=== PATIENT | female | born 1945 | race Asian ===

== ENCOUNTER 2021-10-11 12:52 | Emergency (ER) | payer MEDICARE, OTHER ==
[~2021-10-11] VITALS: Ht 160 cm; Wt 70.9 kg
[~2021-10-11 12:52] MED LIST: ACET-784 PO; AMLO5TAB66 PO; ASPI-1522 PO; ATOR20TA86 PO; CHLO100T23 PO; DIME50TA PO; DIPH25CA85 PO; DOCU-378 PO; FERR325T22 PO; GLIP10TA9 PO; MECL-160 PO; PROMDM5L PO; VALS160T2 PO
[2021-10-11 13:33] LABS: BASOPHILS % (AUTO) 0.2 % (0.0-2.0); EOSINOPHILS % (AUTO) 0.2 % (1.0-6.0); HEMATOCRIT 29.6 % (36-46); HEMOGLOBIN 10.7 g/dL (12.0-16.0); LYMPHOCYTES % (AUTO) 6.8 % (22.0-44.0); MEAN CORPUSCULAR HEMOGLOBIN 32.2 pg (26.0-34.0); MEAN CORPUSCULAR VOLUME 89 fL (80-100); MONOCYTES # (AUTO) 4.4 K/uL (0.1-1.0); MONOCYTES % (AUTO) 15.3 % (2.0-9.0); NEUTROPHILS # (AUTO) 22.3 K/uL (1.8-7.7); NEUTROPHILS % (AUTO) 77.5 % (40.0-70.0); PLATELET COUNT (AUTO) 178 K/uL (150-450); RED BLOOD CELL COUNT(AUTO) 3.31 MIL/uL (4.00-5.20)
[2021-10-11 13:46] LABS: ALBUMIN 4.6 g/dL (3.4-5.0); BILIRUBIN,TOTAL 0.7 mg/dL (0.1-1.0); CREATININE 0.92 mg/dL (0.60-1.30); POTASSIUM 4.3 mmol/L (3.5-5.1); PROTHROMBIN TIME 11.1 SEC (9.4-11.6); TOTAL PROTEIN, SERUM 8.6 g/dL (6.4-8.2)
[2021-10-11] MEDS ORDERED: SODIUM CHLORIDE 3% 500 ML IV ONE (14:15)
[2021-10-11] MEDS ORDERED: DOCU-385 PO (14:23)
[2021-10-11] MEDS ORDERED: DILT-39 PO (14:23)
[2021-10-11] MEDS ORDERED: ATOR10TA84 PO (14:23)
[2021-10-11] MEDS ORDERED: OLME40TA18 PO (14:23)
[2021-10-11] MEDS ORDERED: DICL100G31 TP (14:23)
[2021-10-11] MEDS ORDERED: ERGO500054 PO (14:23)
[2021-10-11 14:29] LABS: APPEARANCE,URINE HAZY (CLEAR); BILIRUBIN,URINE NEGATIVE (NEGATIVE); GLUCOSE, URINE (UA) 150-200 mg/dL (NEGATIVE); KETONES,URINE NEGATIVE (NEGATIVE); LEUKOCYTE ESTERASE ,URINE LARGE (NEGATIVE); NITRATE,URINE NEGATIVE (NEGATIVE); OCCULT BLOOD,URINE MODERATE (NEGATIVE); PROTEIN,URINE 30-70 mg/dL (NEGATIVE); SPECIFIC GRAVITIY, URINE 1.004 (1.003-1.030); UROBILINOGEN,URINE <=1.0 mg/dL (<=1.0)
[2021-10-11] MEDS ORDERED: PIPERACILLIN SODIUM/TAZOBACTAM 4.5 GM in DEXTROSE 5%-WATER 100 ML IV ONE (14:30)
[2021-10-11 14:46] LABS: BACTERIA,URINE Many /HPF (None Seen); SQUAMOUS EPITHELIAL CELL,UR Few /LPF (None Seen); WBC,URINE 26-50 /HPF (0-5)
[2021-10-11 15:46] LABS: COVID AG,FIA SOURCE NASAL SWAB
[2021-10-11 16:07] LABS: INFLUENZA TYPE A NEGATIVE FOR TYPE A (NEGATIVE); INFLUENZA TYPE B NEGATIVE FOR TYPE B (NEGATIVE)
[2021-10-11 17:51] LABS: BILIRUBIN,TOTAL 0.7 mg/dL (0.1-1.0); CALCIUM, TOTAL 8.4 mg/dL (8.8-10.5); CREATININE 0.99 mg/dL (0.60-1.30); POTASSIUM 4.1 mmol/L (3.5-5.1); TOTAL PROTEIN, SERUM 7.7 g/dL (6.4-8.2)
[2021-10-11 21:38] LABS: ALBUMIN 4.2 g/dL (3.4-5.0); BILIRUBIN,TOTAL 0.7 mg/dL (0.1-1.0); CREATININE 0.99 mg/dL (0.60-1.30); POTASSIUM 4.4 mmol/L (3.5-5.1); TOTAL PROTEIN, SERUM 8.2 g/dL (6.4-8.2)
[2021-10-12 00:11] LABS: GLUCOSE,POINT OF CARE 183 MG/DL (70-110)
[2021-10-12 02:39] VITALS: BP 134/64
== END 2021-10-12 03:19 | disposition short-term general hospital (02) ==
LOC: EMS 12:52
DX: E87.1 Hypo-osmolality and hyponatremia (principal); N39.0 Urinary tract infection, site not specified; M19.90 Unspecified osteoarthritis, unspecified site; E11.9 Type 2 diabetes mellitus without complications; E78.00 Pure hypercholesterolemia, unspecified; I10 Essential (primary) hypertension; E78.5 Hyperlipidemia, unspecified; Z98.890 Other specified postprocedural states; Z20.822 Contact with and (suspected) exposure to COVID-19
CPT/HCPCS: 99291; 96361; 96365; 70450; 71045; 87426; 81001; 82962; 83605; 83880; 84484; 85025; 85610; 85730; 87040; 87804; 87086; 99292; 93005; 80053; 36415; J2543; J7060; J7030; 51701

== ENCOUNTER 2022-01-07 17:10 | Inpatient (IN) | payer MEDICARE, OTHER ==
[~2022-01-07] VITALS: Ht 152.4 cm; Wt 62.8 kg
[~2022-01-07 17:10] MED LIST changes: -AMLO5TAB66 PO; +ATOR10TA84 PO; -ATOR20TA86 PO; -CHLO100T23 PO; +CHLO100T36 PO; +DICL100G31 TP; +DILT-39 PO; -DIME50TA PO; -DOCU-378 PO; +DOCU-385 PO; +ERGO500054 PO; +OLME40TA18 PO; -PROMDM5L PO; -VALS160T2 PO
[2022-01-07 18:27] LABS: BASOPHILS % (AUTO) 0.5 % (0.0-2.0); EOSINOPHILS % (AUTO) 1.6 % (1.0-6.0); HEMATOCRIT 33.2 % (36-46); HEMOGLOBIN 10.9 g/dL (12.0-16.0); LYMPHOCYTES # (AUTO) 2.2 K/uL (1.0-4.8); LYMPHOCYTES % (AUTO) 10.3 % (22.0-44.0); MEAN CORPUSCULAR HEMOGLOBIN 31.1 pg (26.0-34.0); MEAN CORPUSCULAR HGB CONC 32.7 G/dL (31.0-37.0); MEAN CORPUSCULAR VOLUME 95 fL (80-100); MONOCYTES # (AUTO) 5.8 K/uL (0.1-1.0); MONOCYTES % (AUTO) 26.5 % (2.0-9.0); NEUTROPHILS # (AUTO) 13.3 K/uL (1.8-7.7); NEUTROPHILS % (AUTO) 61.1 % (40.0-70.0); PLATELET COUNT (AUTO) 146 K/uL (150-450); RED BLOOD CELL COUNT(AUTO) 3.49 MIL/uL (4.00-5.20); RED CELL DISTRIBUTION WIDTH 12.4 % (11.5-14.5)
[2022-01-07] MEDS ORDERED: SODIUM CHLORIDE 0.9% 1,000 ML IV ONE ×2 (18:30→19:00)
[2022-01-07] MEDS ORDERED: ACETAMINOPHEN 500 MG TABLET PO ONE (18:30)
[2022-01-07 18:38] LABS: ANION GAP 8 mmol/L (8-16); CARBON DIOXIDE 28 mmol/L (22-29); CHLORIDE 90 mmol/L (98-107); CREATININE 1.18 mg/dL (0.60-1.30); GLUCOSE,RANDOM 296 mg/dL (70-110); POTASSIUM 4.9 mmol/L (3.5-5.1); SODIUM SERUM 126 mmol/L (136-145); UREA NITROGEN, BLOOD 25 mg/dL (7-18)
[2022-01-07 18:42] LABS: GLOMERULAR FILTR. RATE CALC 44 mL/min (>60)
[2022-01-07 18:48] LABS: LACTIC ACID 2.3 mmol/L (0.4-2.0)
[2022-01-07 18:56] LABS: COVID AG,FIA SOURCE NASOPHARYNGEAL
[2022-01-07 19:03] LABS: ALANINE AMINOTRANSFERASE 107 U/L (12-78); ALBUMIN 3.8 g/dL (3.4-5.0); ALKALINE PHOSPHATASE 108 U/L (46-116); ASPARTATE AMINOTRANSFERASE 46 U/L (15-37); BILIRUBIN,TOTAL 0.2 mg/dL (0.1-1.0); CREATINE KINASE, TOTAL ONLY 115 U/L (26-192); TOTAL PROTEIN, SERUM 7.8 g/dL (6.4-8.2)
[2022-01-07 19:19] LABS: INFLUENZA TYPE A NEGATIVE FOR TYPE A (NEGATIVE); INFLUENZA TYPE B NEGATIVE FOR TYPE B (NEGATIVE)
[2022-01-07] MEDS ORDERED: CefTRIAXone 1 GM/DEXTROSE 50 ML IV ONE (19:30)
[2022-01-07] MEDS ORDERED: AZITHROMYCIN 500 MG/NS 250 ML IV ONE (19:30)
[2022-01-07] MEDS ORDERED: ONDANSETRON HCL 4 MG/2 ML VIAL IVP PRN ×2 (20:30)
[2022-01-07] MEDS ORDERED: ACETAMINOPHEN 325 MG TABLET PO PRN (20:30)
[2022-01-07 20:37] LABS: APPEARANCE,URINE CLEAR (CLEAR); BILIRUBIN,URINE NEGATIVE (NEGATIVE); GLUCOSE, URINE (UA) 150-200 mg/dL (NEGATIVE); KETONES,URINE NEGATIVE (NEGATIVE); LEUKOCYTE ESTERASE ,URINE NEGATIVE (NEGATIVE); NITRATE,URINE NEGATIVE (NEGATIVE); OCCULT BLOOD,URINE NEGATIVE (NEGATIVE); PH,URINE 7.5 (5.0-8.0); PROTEIN,URINE NEGATIVE (NEGATIVE); SPECIFIC GRAVITIY, URINE 1.005 (1.003-1.030); UROBILINOGEN,URINE <=1.0 mg/dL (<=1.0)
[2022-01-07] MEDS ORDERED: IOHEXOL 300 MG/ML 100 ML VIAL ONE (20:45)
[2022-01-07] MEDS ORDERED: SODIUM CHLORIDE 0.9% 100 ML ONE (20:45)
[2022-01-07 20:46] LABS: BACTERIA,URINE None Seen /HPF (None Seen); WBC,URINE 0-2 /HPF (0-5)
[2022-01-07 20:47] LABS: SQUAMOUS EPITHELIAL CELL,UR Few /LPF (None Seen)
[2022-01-07] MEDS: DOCUSATE SODIUM 100 MG CAPSULE PO SCH (21:11)
[2022-01-07] MEDS: ChlorproMAZINE HCL 100 MG TABLET PO SCH (21:22)
[2022-01-07 22:52] VITALS: BP 156/83
[2022-01-07] MEDS: DiphenhydrAMINE HCL 25 MG CAPSULE PO PRN (23:55)
[2022-01-07] MEDS: HEPARIN SODIUM,PORCINE 5,000 UNITS/ML VIAL SQ SCH (23:56)
[2022-01-08 04:55] VITALS: BP 157/86
[2022-01-08] MEDS: RINGERS SOLUTION,LACTATED 1,000 ML IV SCH (05:36)
[2022-01-08 07:18] VITALS: BP 159/88
[2022-01-08] MEDS ORDERED: FERROUS SULFATE 325 MG EC TABLET PO SCH (08:00)
[2022-01-08] MEDS: ASPIRIN 81 MG DR TABLET PO SCH (08:20)
[2022-01-08] MEDS: DOCUSATE SODIUM 100 MG CAPSULE PO SCH ×2 (08:20→22:22)
[2022-01-08] MEDS: DILTIAZEM HCL CD 120 MG ER CAPSULE PO SCH (08:20)
[2022-01-08] MEDS: FERROUS SULFATE 325 MG EC TABLET PO SCH ×2 (08:20→17:59)
[2022-01-08] MEDS: ATORVASTATIN CALCIUM 10 MG TABLET PO SCH (08:21)
[2022-01-08] MEDS: HEPARIN SODIUM,PORCINE 5,000 UNITS/ML VIAL SQ SCH ×3 (08:21→22:59)
[2022-01-08] MEDS ORDERED: ATORVASTATIN CALCIUM 10 MG TABLET PO SCH (09:00)
[2022-01-08] MEDS ORDERED: DILTIAZEM HCL CD 120 MG ER CAPSULE PO SCH (09:00)
[2022-01-08] MEDS ORDERED: DEXTROSE 50%-WATER 25 GM/50 ML SYRINGE IVP PRN (11:15)
[2022-01-08 11:24] VITALS: BP 155/70
[2022-01-08 11:30] LABS: BASOPHILS % (AUTO) 0.7 % (0.0-2.0); EOSINOPHILS % (AUTO) 2.5 % (1.0-6.0); HEMATOCRIT 34.1 % (36-46); HEMOGLOBIN 11.2 g/dL (12.0-16.0); LYMPHOCYTES # (AUTO) 2.6 K/uL (1.0-4.8); LYMPHOCYTES % (AUTO) 14.2 % (22.0-44.0); MEAN CORPUSCULAR HEMOGLOBIN 31.6 pg (26.0-34.0); MEAN CORPUSCULAR HGB CONC 32.8 G/dL (31.0-37.0); MEAN CORPUSCULAR VOLUME 96 fL (80-100); MONOCYTES # (AUTO) 3.7 K/uL (0.1-1.0); MONOCYTES % (AUTO) 20.2 % (2.0-9.0); NEUTROPHILS # (AUTO) 11.5 K/uL (1.8-7.7); NEUTROPHILS % (AUTO) 62.4 % (40.0-70.0); PLATELET COUNT (AUTO) 127 K/uL (150-450); RED BLOOD CELL COUNT(AUTO) 3.54 MIL/uL (4.00-5.20); RED CELL DISTRIBUTION WIDTH 12.4 % (11.5-14.5)
[2022-01-08] MEDS: INSULIN LISPRO 100 UNITS/ML SQ PRN ×3 (11:46→22:25)
[2022-01-08 11:47] LABS: ANION GAP 11 mmol/L (8-16); CALCIUM, TOTAL 9.2 mg/dL (8.8-10.5); CARBON DIOXIDE 22 mmol/L (22-29); CHLORIDE 94 mmol/L (98-107); CREATININE 0.78 mg/dL (0.60-1.30); GLUCOSE,RANDOM 207 mg/dL (70-110); POTASSIUM 5.1 mmol/L (3.5-5.1); SODIUM SERUM 127 mmol/L (136-145); UREA NITROGEN, BLOOD 16 mg/dL (7-18)
[2022-01-08 11:48] LABS: GLOMERULAR FILTR. RATE CALC > 60 mL/min (>60)
[2022-01-08 15:13] VITALS: BP 156/77
[2022-01-08] MEDS ORDERED: SODIUM CHLORIDE 0.9% 250 ML IV ONE (16:46)
[2022-01-08] MEDS: CefTRIAXone 1 GM/DEXTROSE 50 ML IV SCH (16:51)
[2022-01-08] MEDS: AZITHROMYCIN 500 MG/NS 250 ML IV SCH (17:55)
[2022-01-08 19:42] VITALS: BP 138/73
[2022-01-08 21:02] LABS: GLUCOMETER DEV NAME(LOC) 5N.1C; GLUCOSE,POINT OF CARE 199 MG/DL (70-110)
[2022-01-08 21:02] LABS: GLUCOMETER DEV NAME(LOC) 5N.1C; GLUCOSE,POINT OF CARE 126 MG/DL (70-110)
[2022-01-08 21:02] LABS: GLUCOMETER DEV NAME(LOC) 5N.3; GLUCOSE,POINT OF CARE 164 MG/DL (70-110)
[2022-01-08 21:02] LABS: GLUCOMETER DEV NAME(LOC) 5N.1C; GLUCOSE,POINT OF CARE 168 MG/DL (70-110)
[2022-01-08] MEDS: ChlorproMAZINE HCL 100 MG TABLET PO SCH (22:23)
[2022-01-08] MEDS: ACETAMINOPHEN 325 MG TABLET PO PRN (22:23)
[2022-01-08] MEDS: DiphenhydrAMINE HCL 25 MG CAPSULE PO PRN (22:23)
[2022-01-08 23:35] VITALS: BP 145/80
[2022-01-09] VITALS (7 sets, daily range): BP systolic 129–161; BP diastolic 70–94
[2022-01-09] MEDS: ZOLPIDEM TARTRATE 5 MG TABLET PO PRN ×2 (00:37→19:31)
[2022-01-09] MEDS: RINGERS SOLUTION,LACTATED 1,000 ML IV SCH ×2 (00:37→22:57)
[2022-01-09 06:12] LABS: GLUCOMETER DEV NAME(LOC) 5N.3; GLUCOSE,POINT OF CARE 103 MG/DL (70-110)
[2022-01-09 06:12] LABS: GLUCOMETER DEV NAME(LOC) 5S.1B; GLUCOSE,POINT OF CARE 271 MG/DL (70-110)
[2022-01-09] MEDS: ATORVASTATIN CALCIUM 10 MG TABLET PO SCH (09:05)
[2022-01-09] MEDS: ASPIRIN 81 MG DR TABLET PO SCH (09:05)
[2022-01-09] MEDS: FERROUS SULFATE 325 MG EC TABLET PO SCH ×2 (09:06→18:06)
[2022-01-09] MEDS: DOCUSATE SODIUM 100 MG CAPSULE PO SCH ×2 (09:06→19:32)
[2022-01-09] MEDS: HEPARIN SODIUM,PORCINE 5,000 UNITS/ML VIAL SQ SCH ×3 (09:06→22:58)
[2022-01-09] MEDS: DILTIAZEM HCL CD 120 MG ER CAPSULE PO SCH (09:10)
[2022-01-09] MEDS: ACETAMINOPHEN 325 MG TABLET PO PRN ×2 (10:55→19:33)
[2022-01-09] MEDS ORDERED: SODIUM CHLORIDE 0.9% 500 ML IV ONE (11:00)
[2022-01-09] MEDS: INSULIN LISPRO 100 UNITS/ML SQ PRN ×3 (11:40→19:33)
[2022-01-09] MEDS: CefTRIAXone 1 GM/DEXTROSE 50 ML IV SCH (16:51)
[2022-01-09 17:22] LABS: GLUCOMETER DEV NAME(LOC) 5N.1C; GLUCOSE,POINT OF CARE 218 MG/DL (70-110)
[2022-01-09 17:22] LABS: GLUCOMETER DEV NAME(LOC) 5N.1C; GLUCOSE,POINT OF CARE 238 MG/DL (70-110)
[2022-01-09] MEDS: AZITHROMYCIN 500 MG/NS 250 ML IV SCH (17:58)
[2022-01-09] MEDS: DiphenhydrAMINE HCL 25 MG CAPSULE PO PRN (19:31)
[2022-01-09] MEDS: ChlorproMAZINE HCL 100 MG TABLET PO SCH (19:32)
[2022-01-09 20:41] LABS: GLUCOMETER DEV NAME(LOC) 5N.3; GLUCOSE,POINT OF CARE 206 MG/DL (70-110)
[2022-01-09 20:41] LABS: GLUCOMETER DEV NAME(LOC) 5N.1C; GLUCOSE,POINT OF CARE 250 MG/DL (70-110)
[2022-01-09] MEDS: GuaiFENesin/D-METHORPHAN [SUGAR-FREE] 200-20MG/10 ML SYRUP UDCUP PO PRN (21:13)
[2022-01-10 04:20] VITALS: BP 142/71
[2022-01-10 06:16] LABS: BASOPHILS % (AUTO) 0.5 % (0.0-2.0); EOSINOPHILS % (AUTO) 2.7 % (1.0-6.0); HEMATOCRIT 32.9 % (36-46); HEMOGLOBIN 10.9 g/dL (12.0-16.0); LYMPHOCYTES # (AUTO) 2.2 K/uL (1.0-4.8); LYMPHOCYTES % (AUTO) 13.3 % (22.0-44.0); MEAN CORPUSCULAR VOLUME 94 fL (80-100); MONOCYTES # (AUTO) 3.8 K/uL (0.1-1.0); MONOCYTES % (AUTO) 23.2 % (2.0-9.0); NEUTROPHILS % (AUTO) 60.3 % (40.0-70.0); PLATELET COUNT (AUTO) 151 K/uL (150-450); RED CELL DISTRIBUTION WIDTH 12.4 % (11.5-14.5)
[2022-01-10] MEDS: ACETAMINOPHEN 325 MG TABLET PO PRN ×2 (06:43→13:38)
[2022-01-10 07:05] VITALS: BP 155/92
[2022-01-10] MEDS: DOCUSATE SODIUM 100 MG CAPSULE PO SCH ×2 (07:58→20:06)
[2022-01-10] MEDS: HEPARIN SODIUM,PORCINE 5,000 UNITS/ML VIAL SQ SCH ×2 (07:58→16:56)
[2022-01-10] MEDS: ASPIRIN 81 MG DR TABLET PO SCH (07:59)
[2022-01-10] MEDS: DILTIAZEM HCL CD 120 MG ER CAPSULE PO SCH (07:59)
[2022-01-10] MEDS ORDERED: SODIUM CHLORIDE 0.9% 250 ML IV ONE (08:00)
[2022-01-10] MEDS ORDERED: GuaiFENesin/CODEINE [SUGAR FREE] 200-20MG/10 ML SYRUP UDCUP PO PRN (08:00)
[2022-01-10] MEDS: ATORVASTATIN CALCIUM 10 MG TABLET PO SCH (08:00)
[2022-01-10] MEDS: FERROUS SULFATE 325 MG EC TABLET PO SCH ×2 (08:02→18:19)
[2022-01-10 08:37] LABS: ALANINE AMINOTRANSFERASE 145 U/L (12-78); ALBUMIN 3.6 g/dL (3.4-5.0); ALKALINE PHOSPHATASE 96 U/L (46-116); ANION GAP 6 mmol/L (8-16); ASPARTATE AMINOTRANSFERASE 47 U/L (15-37); BILIRUBIN,TOTAL 0.2 mg/dL (0.1-1.0); CALCIUM, TOTAL 9.3 mg/dL (8.8-10.5); CARBON DIOXIDE 28 mmol/L (22-29); CHLORIDE 98 mmol/L (98-107); CREATININE 0.84 mg/dL (0.60-1.30); GLUCOSE,RANDOM 162 mg/dL (70-110); SODIUM SERUM 132 mmol/L (136-145); TOTAL PROTEIN, SERUM 7.9 g/dL (6.4-8.2); UREA NITROGEN, BLOOD 15 mg/dL (7-18)
[2022-01-10 08:41] LABS: GLUCOMETER DEV NAME(LOC) 5N.1C; GLUCOSE,POINT OF CARE 127 MG/DL (70-110)
[2022-01-10 08:42] LABS: GLOMERULAR FILTR. RATE CALC > 60 mL/min (>60)
[2022-01-10 11:51] VITALS: BP 149/77
[2022-01-10] MEDS: INSULIN LISPRO 100 UNITS/ML SQ PRN ×3 (11:57→20:10)
[2022-01-10] MEDS: METOPROLOL SUCCINATE 25 MG ER TABLET PO SCH (13:37)
[2022-01-10 15:22] VITALS: BP 150/80
[2022-01-10 16:07] LABS: S PNEUMO SOURCE Urine; STREP PNEUMONIAE AG URINE Negative (Negative)
[2022-01-10] MEDS: CefTRIAXone 1 GM/DEXTROSE 50 ML IV SCH (16:56)
[2022-01-10 17:06] LABS: LEGIONELLA PNEUMO AG URINE Negative (Negative)
[2022-01-10] MEDS: AZITHROMYCIN 500 MG/NS 250 ML IV SCH (18:19)
[2022-01-10 19:47] VITALS: BP 141/78
[2022-01-10] MEDS: RINGERS SOLUTION,LACTATED 1,000 ML IV SCH (19:59)
[2022-01-10] MEDS: ChlorproMAZINE HCL 100 MG TABLET PO SCH (20:00)
[2022-01-10] MEDS: ZOLPIDEM TARTRATE 5 MG TABLET PO PRN (21:16)
[2022-01-10] MEDS: DiphenhydrAMINE HCL 25 MG CAPSULE PO PRN (21:16)
[2022-01-10] MEDS: GuaiFENesin/D-METHORPHAN [SUGAR-FREE] 200-20MG/10 ML SYRUP UDCUP PO PRN (21:16)
[2022-01-10 23:24] VITALS: BP 147/85
[2022-01-11 03:06] LABS: GLUCOMETER DEV NAME(LOC) 5N.3; GLUCOSE,POINT OF CARE 176 MG/DL (70-110)
[2022-01-11 04:18] VITALS: BP 123/61
[2022-01-11 06:19] LABS: BASOPHILS % (AUTO) 0.7 % (0.0-2.0); EOSINOPHILS % (AUTO) 2.5 % (1.0-6.0); HEMATOCRIT 34.4 % (36-46); HEMOGLOBIN 11.2 g/dL (12.0-16.0); LYMPHOCYTES # (AUTO) 2.3 K/uL (1.0-4.8); LYMPHOCYTES % (AUTO) 13.7 % (22.0-44.0); MEAN CORPUSCULAR HGB CONC 32.7 G/dL (31.0-37.0); MEAN CORPUSCULAR VOLUME 95 fL (80-100); MONOCYTES # (AUTO) 3.3 K/uL (0.1-1.0); MONOCYTES % (AUTO) 19.7 % (2.0-9.0); NEUTROPHILS # (AUTO) 10.5 K/uL (1.8-7.7); NEUTROPHILS % (AUTO) 63.4 % (40.0-70.0); PLATELET COUNT (AUTO) 164 K/uL (150-450); RED BLOOD CELL COUNT(AUTO) 3.63 MIL/uL (4.00-5.20); RED CELL DISTRIBUTION WIDTH 12.3 % (11.5-14.5)
[2022-01-11 06:51] LABS: GLUCOMETER DEV NAME(LOC) 5S.1B; GLUCOSE,POINT OF CARE 174 MG/DL (70-110)
[2022-01-11 06:51] LABS: GLUCOMETER DEV NAME(LOC) 5S.1B; GLUCOSE,POINT OF CARE 135 MG/DL (70-110)
[2022-01-11 06:51] LABS: GLUCOMETER DEV NAME(LOC) 5S.1B; GLUCOSE,POINT OF CARE 176 MG/DL (70-110)
[2022-01-11 07:00] LABS: ANION GAP 7 mmol/L (8-16); CALCIUM, TOTAL 9.6 mg/dL (8.8-10.5); CARBON DIOXIDE 28 mmol/L (22-29); CHLORIDE 98 mmol/L (98-107); CREATININE 0.86 mg/dL (0.60-1.30); GLUCOSE,RANDOM 157 mg/dL (70-110); SODIUM SERUM 133 mmol/L (136-145); UREA NITROGEN, BLOOD 17 mg/dL (7-18)
[2022-01-11 07:03] LABS: GLOMERULAR FILTR. RATE CALC > 60 mL/min (>60)
[2022-01-11 07:44] VITALS: BP 140/73
[2022-01-11] MEDS: FERROUS SULFATE 325 MG EC TABLET PO SCH (07:59)
[2022-01-11] MEDS: HEPARIN SODIUM,PORCINE 5,000 UNITS/ML VIAL SQ SCH ×2 (07:59)
[2022-01-11] MEDS: METOPROLOL SUCCINATE 25 MG ER TABLET PO SCH (07:59)
[2022-01-11] MEDS: DOCUSATE SODIUM 100 MG CAPSULE PO SCH (07:59)
[2022-01-11] MEDS: ASPIRIN 81 MG DR TABLET PO SCH (07:59)
[2022-01-11] MEDS: ATORVASTATIN CALCIUM 10 MG TABLET PO SCH (07:59)
[2022-01-11] MEDS ORDERED: DILTIAZEM HCL CD 180 MG ER CAPSULE PO SCH (09:00)
[2022-01-11] MEDS ORDERED: DILTIAZEM HCL CD 120 MG ER CAPSULE PO SCH ×2 (09:00)
[2022-01-11] MEDS ORDERED: DILT120C89 PO (10:40)
[2022-01-11] MEDS ORDERED: METO25XL PO (10:40)
[2022-01-11] MEDS ORDERED: AZIT-104 PO (10:40)
[2022-01-11] MEDS ORDERED: CEPH-558 PO (10:40)
[2022-01-11 11:15] VITALS: BP 142/68
[2022-01-11] MEDS: INSULIN LISPRO 100 UNITS/ML SQ PRN (14:29)
[2022-01-11 19:01] LABS: GLUCOMETER DEV NAME(LOC) 5S.1B; GLUCOSE,POINT OF CARE 230 MG/DL (70-110)
== END 2022-01-11 14:30 | disposition home or self-care (01) | DRG 871 ==
LOC: EMS 17:10 → 5S 21:12 → EMS 21:45
PROVIDERS: ADMIT Internal Medicine; ATTEND Internal Medicine
DX: A41.9 Sepsis, unspecified organism (principal); J18.9 Pneumonia, unspecified organism; E87.1 Hypo-osmolality and hyponatremia; N39.0 Urinary tract infection, site not specified; E11.65 Type 2 diabetes mellitus with hyperglycemia; I10 Essential (primary) hypertension; E78.00 Pure hypercholesterolemia, unspecified; Z20.822 Contact with and (suspected) exposure to COVID-19; I48.91 Unspecified atrial fibrillation; N28.1 Cyst of kidney, acquired; Z79.82 Long term (current) use of aspirin; Z82.49 Family history of ischemic heart disease and other diseases of the circulatory system; Z86.73 Personal history of transient ischemic attack (TIA), and cerebral infarction without residual deficits; Z79.84 Long term (current) use of oral hypoglycemic drugs; Z79.899 Other long term (current) drug therapy
CPT/HCPCS: 51702; 71045; 71260; 72193; 74160; 80048; 80053; 81001; 81003; 82550; 82962; 83605; 83930; 83935; 84300; 84484; 85025; 87040; 87449; 87804; 87899; 93005; 93306; 99291; J0456; J0696; J1644; J7030; J7040; J7050; J7120; Q9967; 36415-L1; 36415-TC